=== PATIENT | female | born 1940 | race Caucasian/White ===

== ENCOUNTER 2016-10-19 15:36 | Observation (INO) | payer OTHER ==
[~2016-10-19] VITALS: Ht 162.6 cm; Wt 89.3 kg
[~2016-10-19 15:36] MED LIST: ADVAIR 250/501 DISK IH; ATIVAN0.5 MG PO; Aspirin E.C. PO; Benadryl PO; CEFTIN500 MG PO; CENTRUM SILVER1 EACH PO; CENTRUM TABLET1 EACH PO; CLARITIN10 M3 PO; CLONAZEPAM0.5 MG PO; COZAAR100 MG PO; CRESTOR10 MG PO; Catapres PO; FORTAMET500 M1 PO; Glucophage PO; IMITREX25 MG PO; INDERAL LA60 MG PO; INDERAL60 MG PO; KlonoPIN PO; LORATADINE10 M2 PO; Lasix PO; Levaquin PO; MECLIZINE HCL25 M3 PO; MONTELUKAST SOD10 MG PO; NEURONTIN100 MG PO; Nitrostat,NitroQuick SL; PREDNISONE20 MG PO; PRIMIDONE50 MG PO; PROPRANOLOL HCL60 M1 PO; PROTONIX40 MG PO; Pepcid PO; Plavix PO; Proventil,Ventolin H IH; RANITIDINE HCL150 M1 PO; Reglan PO; SIMVASTATIN40 M1 PO; Singulair PO; TAMIFLU75 MG PO; TRAMADOL HCL50 MG PO; ULTRAM50 MG PO; VITAMIN D1000 INTUN PO; VITAMIN D2000 UNIT PO; Vitamin D PO; ZANTAC150 MG PO; ZESTRIL,PRINIVI40 M1 PO; ZESTRIL,PRINIVI40 MG PO; ZITHROMAX Z-PA250 MG PO; Zocor PO; predniSONE PO
[2016-10-19 16:55] LABS: HEMATOCRIT 40.9 % (36.0-46.0); MCH 32.2 PG (29.0-34.0); MCHC 34.7 G/DL (30.0-36.0); MCV 92.7 FL (83-99); MEAN PLAT.VOLUME 10.3 uM^3 (9.5-12.4); PLATELET COUNT 193 K/uL (156-360); RBC DIS.WIDTH-CV 13.1 % (11.8-14.6); RBC DIS.WIDTH-SD 42.6 % (39-53); RED BLOOD COUNT 4.41 M/uL (3.80-5.20); WHITE BLOOD COUNT 8.9 K/uL (4.1-10.2)
[2016-10-19 17:07] LABS: CHLORIDE 105 mEq/L (99-109); POTASSIUM 4.4 mEq/L (3.7-5.4); SODIUM 138 mEq/L (136-147)
[2016-10-19 17:09] LABS: GLUCOSE 93 mg/dL (70-99)
[2016-10-19 17:10] LABS: ANION GAP 13 MEQ/L (2-14)
[2016-10-19 17:13] LABS: GFR ESTIMATE (CALCULATED) > 59 mL/min/
[2016-10-19 17:14] LABS: UREA NITROGEN (BUN) 21 mg/dL (9-23)
[2016-10-19 17:20] LABS: TROP-I INTERPRETATION NEGATIVE; TROPONIN-I < 0.01 ng/mL (0.0-0.30)
[2016-10-19 17:44] LABS: MAGNESIUM 2.2 mg/dL (1.3-2.7)
[2016-10-19] MEDS ORDERED: PROPRANOLOL HCL60 MG PO (17:54)
[2016-10-19] MEDS ORDERED: ADVAIR 500/501 DISK IH (17:55)
[2016-10-19] MEDS ORDERED: CATAPRES0.1 MG PO (17:57)
[2016-10-19] MEDS ORDERED: PROAIR HFA8.5 GM IH (17:57)
[2016-10-19] MEDS ORDERED: NITROSTAT0.4 MG SL (17:57)
[2016-10-19] MEDS ORDERED: VITAMIN D32000 UNI1 PO (17:58)
[2016-10-19] MEDS ORDERED: PLAVIX75 MG PO (17:59)
[2016-10-19] MEDS ORDERED: LASIX20 MG PO (17:59)
[2016-10-19] MEDS ORDERED: RANEXA500 MG PO (18:00)
[2016-10-19] MEDS ORDERED: LO-DOSE ASPIRIN81 M2 PO (18:00)
[2016-10-19] MEDS ORDERED: TYLENOL EXTRA500 MG PO (18:01)
[2016-10-19] MEDS ORDERED: FLUOXETINE HCL40 MG PO (18:01)
[2016-10-19] MEDS ORDERED: CENTRUM SILVER1 EAC4 PO (18:01)
[2016-10-19 21:08] VITALS: BP 148/66
[2016-10-19 23:49] LABS: TROP-I INTERPRETATION NEGATIVE; TROPONIN-I 0.04 ng/mL (0.0-0.30)
[2016-10-20 04:30] VITALS: BP 144/63
[2016-10-20 06:28] LABS: HEMATOCRIT 39.7 % (36.0-46.0); MCH 31.4 PG (29.0-34.0); MCHC 33.5 G/DL (30.0-36.0); MCV 93.6 FL (83-99); MEAN PLAT.VOLUME 10.6 uM^3 (9.5-12.4); PLATELET COUNT 202 K/uL (156-360); RBC DIS.WIDTH-CV 13.6 % (11.8-14.6); RBC DIS.WIDTH-SD 46.3 % (39-53); RED BLOOD COUNT 4.24 M/uL (3.80-5.20); WHITE BLOOD COUNT 8.2 K/uL (4.1-10.2)
[2016-10-20 06:34] LABS: ALKALINE PHOSPHATASE 80 IU/L (3-129); ANION GAP 10 MEQ/L (2-14); CHLORIDE 98 MEQ/L (99-109); GFR ESTIMATE (CALCULATED) 57 mL/min/; GLUCOSE 96 mg/dL (70-99); SAMPLE HEMOLYSIS CHECK 1; SAMPLE ICTERIC CHECK 0; SAMPLE LIPEMIA CHECK 0; SODIUM 138 MEQ/L (136-147); TOTAL BILIRUBIN 0.5 MG/DL (0.0-1.0); UREA NITROGEN (BUN) 18 mg/dL (9-23)
[2016-10-20 06:37] LABS: TROP-I INTERPRETATION NEGATIVE; TROPONIN-I 0.06 ng/mL (0.0-0.30)
[2016-10-20 06:41] LABS: POTASSIUM 4.2 MEQ/L (3.7-5.4)
[2016-10-20 09:02] VITALS: BP 142/83
[2016-10-20 11:25] LABS: TROP-I INTERPRETATION NEGATIVE; TROPONIN-I 0.04 ng/mL (0.0-0.30)
[2016-10-20 11:26] VITALS: BP 115/53
[2016-10-20 12:48] VITALS: BP 115/53
[2016-10-20 18:09] VITALS: BP 133/62
[2016-10-24] MEDS ORDERED: MIRALAX17 GM PO (13:21)
[2016-10-24] MEDS ORDERED: SENOKOT,SENN1 TABLET PO (13:21)
== END 2016-10-20 18:45 | disposition home or self-care (01) ==
LOC: EME 15:36 → 5WEST 18:24 → EDOF 18:24 → 5WEST 21:05
PROVIDERS: Internal Medicine; Nurse Practitioner Family
DX: R07.2 Precordial pain (principal); R10.13 Epigastric pain; M54.9 Dorsalgia, unspecified; I11.0 Hypertensive heart disease with heart failure; I50.9 Heart failure, unspecified; Q22.1 Congenital pulmonary valve stenosis; I25.10 Atherosclerotic heart disease of native coronary artery without angina pectoris; G25.0 Essential tremor; Z95.5 Presence of coronary angioplasty implant and graft; E78.00 Pure hypercholesterolemia, unspecified; F41.9 Anxiety disorder, unspecified; J45.909 Unspecified asthma, uncomplicated; G89.29 Other chronic pain; G47.33 Obstructive sleep apnea (adult) (pediatric); F32.9 Major depressive disorder, single episode, unspecified; E66.9 Obesity, unspecified; Z68.33 Body mass index [BMI] 33.0-33.9, adult
CPT/HCPCS: 71020; 80048; 80053; 83735; 84484; 85027; 93005; 94640; 94640 76; 99202; 99281; 99284; C9113; G0378; J0360; J1644; J1940; J3010

== ENCOUNTER 2016-10-26 06:44 | Day surgery (SDC) | payer OTHER ==
[~2016-10-26] VITALS: Ht 162.6 cm; Wt 92.4 kg
[~2016-10-26 06:44] MED LIST changes: +ADVAIR 500/501 DISK IH; +CATAPRES0.1 MG PO; +CENTRUM SILVER1 EAC4 PO; +FLUOXETINE HCL40 MG PO; +LASIX20 MG PO; +LO-DOSE ASPIRIN81 M2 PO; +MIRALAX17 GM PO; +NITROSTAT0.4 MG SL; +PLAVIX75 MG PO; +PROAIR HFA8.5 GM IH; +PROPRANOLOL HCL60 MG PO; +RANEXA500 MG PO; +SENOKOT,SENN1 TABLET PO; +TYLENOL EXTRA500 MG PO; +VITAMIN D32000 UNI1 PO
[2016-10-26 17:30] VITALS: BP 162/75
[2016-10-26 20:09] VITALS: BP 125/58
[2016-10-26 23:11] VITALS: BP 114/57
[2016-10-27 03:12] VITALS: BP 132/63
[2016-10-27 08:30] VITALS: BP 151/67
[2016-10-27] MEDS ORDERED: EFFIENT10 MG PO (11:27)
== END 2016-10-27 14:38 | disposition home or self-care (01) ==
LOC: CATH 06:44 → 2SOUTH 14:09 → 4EAST 14:09 → 2SOUTH 14:09 → 4EAST 17:14
DX: I25.10 Atherosclerotic heart disease of native coronary artery without angina pectoris (principal); Z98.61 Coronary angioplasty status; G47.30 Sleep apnea, unspecified; R07.2 Precordial pain; J45.909 Unspecified asthma, uncomplicated; K21.9 Gastro-esophageal reflux disease without esophagitis; K44.9 Diaphragmatic hernia without obstruction or gangrene; Z88.8 Allergy status to other drugs, medicaments and biological substances; Z91.09 Other allergy status, other than to drugs and biological substances; Z91.041 Radiographic dye allergy status; Z88.5 Allergy status to narcotic agent; Z88.0 Allergy status to penicillin; Z88.2 Allergy status to sulfonamides
CPT/HCPCS: 85347; 94640; 94640 76; C1725; C1769; C1874; C1887; G0378; J1200; J1644; J2250; J2765; J2930; J3010; J7050

== ENCOUNTER 2017-06-06 13:09 | Observation (INO) | payer OTHER ==
[~2017-06-06] VITALS: Ht 162.6 cm; Wt 87.8 kg
[~2017-06-06 13:09] MED LIST changes: -ADVAIR 500/501 DISK IH; +EFFIENT10 MG PO
[2017-06-06 14:40] LABS: HEMATOCRIT 36.4 % (36.0-46.0); MCH 32.6 PG (29.0-34.0); MCHC 34.6 G/DL (30.0-36.0); MCV 94.1 FL (83-99); MEAN PLAT.VOLUME 10.5 uM^3 (9.5-12.4); PLATELET COUNT 184 K/uL (156-360); RBC DIS.WIDTH-CV 13.1 % (11.8-14.6); RBC DIS.WIDTH-SD 44.7 % (39-53); RED BLOOD COUNT 3.87 M/uL (3.80-5.20); WHITE BLOOD COUNT 7.5 K/uL (4.1-10.2)
[2017-06-06 14:51] LABS: CHLORIDE 104 mEq/L (99-109); POTASSIUM 4.1 mEq/L (3.7-5.4); SODIUM 138 mEq/L (136-147)
[2017-06-06 14:53] LABS: GLUCOSE 96 mg/dL (70-99)
[2017-06-06 14:55] LABS: ANION GAP 9 MEQ/L (2-14)
[2017-06-06 14:57] LABS: GFR ESTIMATE (CALCULATED) 57 mL/min/
[2017-06-06 14:58] LABS: UREA NITROGEN (BUN) 14 mg/dL (9-23)
[2017-06-06 15:01] LABS: TROP-I INTERPRETATION NEGATIVE; TROPONIN-I 0.02 ng/mL (0.0-0.30)
[2017-06-06] MEDS ORDERED: LISINOPRIL10 MG PO (16:40)
[2017-06-06] MEDS ORDERED: PRILOSEC20 MG PO (17:02)
[2017-06-06] MEDS ORDERED: VENTOLIN HFA18 GM IH (17:05)
[2017-06-06 17:32] VITALS: BP 178/72
[2017-06-06 19:58] VITALS: BP 174/78
[2017-06-06 20:13] LABS: TROP-I INTERPRETATION NEGATIVE; TROPONIN-I < 0.01 ng/mL (0.0-0.30)
[2017-06-07 00:04] VITALS: BP 162/74
[2017-06-07 01:00] LABS: TROP-I INTERPRETATION NEGATIVE; TROPONIN-I < 0.01 ng/mL (0.0-0.30)
[2017-06-07 02:07] LABS: ADD MIUA? YES; BILIRUBIN NEGATIVE; BLOOD NEGATIVE; COLOR STRAW ((YELLOW)); GLUCOSE (STRIP) NEGATIVE; KETONES NEGATIVE; LEUKOCYTES SMALL; NITRITE NEGATIVE; PROTEIN (STRIP) NEGATIVE; SPECIFIC GRAVITY 1.009 (1.000-1.030); UROBILINOGEN 0.2 MG/DL (0.2-1.0)
[2017-06-07 02:18] LABS: BACTERIA NONE SEEN /HPF; EPITHELIAL CELLS RARE /HPF; MUCUS NONE SEEN /LPF; RED BLOOD CELLS 15-20 /HPF (0-5); UCUL ADDED? YES
[2017-06-07 02:27] LABS: INFLUENZA A VIRAL ANTIGEN NEGATIVE; INFLUENZA B VIRAL ANTIGEN NEGATIVE
[2017-06-07 03:45] VITALS: BP 143/77
[2017-06-07 05:57] LABS: TROP-I INTERPRETATION NEGATIVE; TROPONIN-I < 0.01 ng/mL (0.0-0.30)
[2017-06-07 08:30] VITALS: BP 142/75
[2017-06-07 12:00] VITALS: BP 124/68
[2017-06-07] MEDS ORDERED: GABAPENTIN100 MG PO (13:24)
[2017-06-07] MEDS ORDERED: ZOFRAN4 MG PO (13:24)
== END 2017-06-07 15:32 | disposition home or self-care (01) ==
LOC: EME 13:09 → EDOF 15:48 → 5WEST 15:48 → ENRESERV 15:52 → 5WEST 17:26
PROVIDERS: Hospitalist; Physician Assistant Medical
DX: R07.89 Other chest pain (principal); R94.31 Abnormal electrocardiogram [ECG] [EKG]; I25.10 Atherosclerotic heart disease of native coronary artery without angina pectoris; Z95.5 Presence of coronary angioplasty implant and graft; I11.9 Hypertensive heart disease without heart failure; E78.5 Hyperlipidemia, unspecified; J45.909 Unspecified asthma, uncomplicated; F41.9 Anxiety disorder, unspecified; F32.9 Major depressive disorder, single episode, unspecified; D68.9 Coagulation defect, unspecified; Z79.01 Long term (current) use of anticoagulants; Z79.82 Long term (current) use of aspirin; K21.9 Gastro-esophageal reflux disease without esophagitis; K44.9 Diaphragmatic hernia without obstruction or gangrene; G47.30 Sleep apnea, unspecified; G25.0 Essential tremor; E66.9 Obesity, unspecified; Z82.49 Family history of ischemic heart disease and other diseases of the circulatory system; Z88.0 Allergy status to penicillin; Z88.2 Allergy status to sulfonamides; Z88.5 Allergy status to narcotic agent; Z88.8 Allergy status to other drugs, medicaments and biological substances; Z91.09 Other allergy status, other than to drugs and biological substances; Z91.041 Radiographic dye allergy status
CPT/HCPCS: 71020; 78582; 80048; 81003; 84484; 85027; 85379; 87086; 87502; 93005; 94640; 94640 76; 99202; 99281; 99285; A9540; A9567; G0378; J1650; J2405